=== PATIENT | male | born 1970 | race Caucasian/White ===

== ENCOUNTER → 2017-05-12 | Outpatient (REF) ==
[2006-06-27 15:30] VITALS: PULSE 73; TEMP 98.1
== END ==
LOC: ZLAB.WCH 19:54
DX: Z01.89 Encounter for other specified special examinations (principal)

== ENCOUNTER → 2018-06-16 | Outpatient (REF) ==
[2006-06-27 15:30] VITALS: PULSE 73; TEMP 98.1
[2018-06-16 17:50] LABS: THYROID STIMULATING HORMONE 1.21 uIU/mL (0.465-4.680)
[2018-06-16 18:31] LABS: PSA-TOTAL 0.77 ng/mL (0-4)
== END ==
LOC: ZLAB.WCH 16:34
PROVIDERS: Physician Assistant
DX: Z01.89 Encounter for other specified special examinations (principal)
CPT/HCPCS: G0103

== ENCOUNTER → 2020-02-23 | Outpatient (CLI) | payer BC | LOC: DIA.ED 13:38 | DX: E11.9 Type 2 diabetes mellitus without complications (principal); E66.8 Other obesity; I10 Essential (primary) hypertension | CPT/HCPCS: G0108 ==

== ENCOUNTER → 2020-03-09 | Outpatient (CLI) | payer BC | LOC: DIA.ED 09:20 | DX: E11.9 Type 2 diabetes mellitus without complications (principal); Z79.84 Long term (current) use of oral hypoglycemic drugs; E66.8 Other obesity; I10 Essential (primary) hypertension; E78.5 Hyperlipidemia, unspecified | CPT/HCPCS: G0108 ==

== ENCOUNTER → 2020-04-05 | Outpatient (CLI) | payer BC | LOC: DIA.ED 09:16 | DX: E11.9 Type 2 diabetes mellitus without complications (principal); E66.8 Other obesity; Z79.84 Long term (current) use of oral hypoglycemic drugs; I10 Essential (primary) hypertension | CPT/HCPCS: G0108 ==

== ENCOUNTER → 2020-07-05 | Outpatient (CLI) | payer BC | LOC: DIA.ED 12:27 | DX: E66.8 Other obesity (principal); Z68.28 Body mass index [BMI] 28.0-28.9, adult; I10 Essential (primary) hypertension; Z79.84 Long term (current) use of oral hypoglycemic drugs | CPT/HCPCS: G0108 ==

== ENCOUNTER 2021-08-08 05:30 | Day surgery (SDC) | payer BC ==
[~2021-08-08] VITALS: Ht 190.5 cm; Wt 101.8 kg
--- NOTE | 2021-08-08 05:40 | NUR ---
50 Year old male admitted to [facility] via ambulation. Daughter, Quentin is present. Patient stated it was "okay" to ask questions with daughter present. Procedure verified and consent signed. First and last name + verified at this time. Medications and HX reviewed. Vitals obtained. Blood sugar obtained and documented. Physical assessment completed, see physical assessment. IV started in R FA on first attempt with 20G. LR is infusing without difficulty and set to 150 ml/hr. Patient was provided an extra pillow and a warm blanket. Non-slip socks are on. Side rails x2. Patient verbalized understanding on how to use call rodas, which is at bedside. Patient stated no questions or concerns. Patient denies pain.
[2021-08-08] MEDS ORDERED: GLUCOPHAGE500 MG/TAB PO (05:42)
[2021-08-08] MEDS ORDERED: PRINZIDE 25 MG-1 TAB PO (05:43)
[2021-08-08] MEDS ORDERED: GLUCOPHAGE1000 MG PO (05:43)
[2021-08-08 06:17] VITALS: BP 129/85; PULSE 57; TEMP 97.7
--- NOTE | 2021-08-08 06:50 | NUR ---
TESSA was in to speak with the patient.
--- NOTE | 2021-08-08 07:00 | NUR ---
Patient required minimal assistance ambulating to the bathroom to void. Then back to bed. IV was flushed at this time to clear the blood backflow. IV is patent and infusing without difficulty.
--- NOTE | 2021-08-08 07:31 | NUR ---
Martha was in to see the patient. Deandra contacted.
[2021-08-08] MEDS ORDERED: NORCO 325 MG-51 TAB PO (09:03)
[2021-08-08 10:00] VITALS: BP 114/77; PULSE 50; TEMP 97
--- NOTE | 2021-08-08 10:00 | NUR ---
Patient arrived on cart from PACU escorted by BERTRAND Ochoa. Patient is oriented x3 but sleeps unless aroused. Vitals obtained. Patient denied pain and stated only discomfort. Ice water provided and the patient is tolerating it well. Patient is currently on 2L-O2. Daughter is present. Call rodas is at bedside. Side rails x1 per patient request.
--- NOTE | 2021-08-08 10:06 | NUR ---
O2 titrated down to 1L due to SO2 stats at 100% and steady. Patient denies neasea.
[2021-08-08 10:15] VITALS: BP 122/76; PULSE 61
--- NOTE | 2021-08-08 10:15 | NUR ---
Patient is resting. Vitals obtained. Call rodas is within reach. Side rails x2.
[2021-08-08 10:30] VITALS: BP 119/79; PULSE 57
--- NOTE | 2021-08-08 10:30 | NUR ---
Patient requested crackers to eat and is tolerating them well. Vitals obtained.
[2021-08-08 10:45] VITALS: BP 117/80; PULSE 89
--- NOTE | 2021-08-08 10:45 | NUR ---
Patient was assisted to the bathroom to void and was successful. IV discontined at this time due to impending discharge. Catheter tip intact. No redness or swelling noted. Pressure dressing applied. Patient is currently changing into his personal clothes and his daughter left to shrimp picker the car.
--- NOTE | 2021-08-08 11:10 | NUR ---
Discharge instructions and educational material was reviewed at this time. Patient verbalize understanding of material and signed the realted paperwork. Patient stated no further questions or concerns.
[2021-08-08 11:15] VITALS: BP 121/81; PULSE 75
--- NOTE | 2021-08-08 11:40 | NUR ---
Patient was eescorted out via wheelchair by BERTRAND Varela to the patient entrence. Patient has his discharge instructions in hand. Denies any further questions or concerns. Patient was transferred into the care of his daughter at this time, who is above the age of 18 [address] to [address]. Patient got into the front passanger seat and secured his seat belt.
== END 2021-08-08 11:40 | disposition home or self-care (01) ==
LOC: SDCO 05:30
DX: K43.2 Incisional hernia without obstruction or gangrene (principal); K43.9 Ventral hernia without obstruction or gangrene; I10 Essential (primary) hypertension; E11.9 Type 2 diabetes mellitus without complications; Z79.84 Long term (current) use of oral hypoglycemic drugs; Z79.899 Other long term (current) drug therapy; Z86.718 Personal history of other venous thrombosis and embolism; Z80.42 Family history of malignant neoplasm of prostate; Z83.3 Family history of diabetes mellitus
CPT/HCPCS: C1781; J7120